=== PATIENT | female | born 1955 | race Caucasian/White ===

== ENCOUNTER 2018-04-05 14:13 | Emergency (ER) | payer BC ==
[2018-04-05 14:44] LABS: Bilirubin Negative (Negative); Blood, Urine Trace (Negative); Clarity Clear (Clear); Glucose, Urine (Dipstick) Negative (Negative); Leukocyte Trace (Negative); Nitrite Positive (Negative); Protein, Urine (Dipstick) Negative (Neg-Trace); Specific Gravity, Urine 1.015 (1.005-1.030); Urobilinogen 0.2 mg/dL (0.2-1.0)
[2018-04-05 14:53] LABS: Bacteria/HPF Rare-Few HPF (None Seen); Other Microscopic Description C&S SET UP; RBC/HPF 0-3 HPF (0-3); Squamous Epithelial 0-3 HPF (0-3); WBC/HPF 0-3 HPF (0-3); Yeast-All Forms 1+ HPF (None Seen)
[2018-04-05] MEDS ORDERED: HYDROcodone/Acetaminophen 5/325 mg Tablet ONE (14:58)
[2018-04-05] MEDS ORDERED: Sulfameth/Trimethoprim DS 800-160mg TAB ONE (14:58)
[2018-04-05] MEDS ORDERED: Fluconazole 100 MG TAB ONE ×2 (15:07→15:08)
== END 2018-04-05 15:34 | disposition home or self-care (01) ==
LOC: MADERS 14:13
DX: N39.0 Urinary tract infection, site not specified (principal); B37.3 Candidiasis of vulva and vagina; J45.909 Unspecified asthma, uncomplicated; I10 Essential (primary) hypertension; Z79.899 Other long term (current) drug therapy
CPT/HCPCS: 81003; 81015; 87086; 99283

== ENCOUNTER 2019-10-15 02:11 | Emergency (ER) | payer BC ==
[2019-10-15] MEDS ORDERED: Ibuprofen 800 MG TAB ONE (02:43)
[2019-10-15] MEDS ORDERED: Ondansetron PF 4 MG/2 ML Vial ONE (02:43)
[2019-10-15] MEDS ORDERED: Sodium Chloride 0.9% 1,000 ML ONE (02:43)
[2019-10-15 03:09] LABS: #Basophils 0.1 thou/uL (0.0-0.2); #Lymphocytes 1.6 thou/uL (1.20-3.40); #Monocytes 1.2 thou/uL (0.11-0.59); #Neutrophils 11.1 thou/uL (1.40-6.50); %Basophils 0.6 % (0.0-1.0); %Lymphocytes 11.4 % (21.0-51.0); %Monocytes 8.3 % (0.0-10.0); %Neutrophils 79.6 % (42.0-75.0); Hemoglobin 11.7 g/dL (12.0-16.0); Mean Corpuscular Hemoglobin 28.7 pg (27.0-31.0); Mean Corpuscular Volume 89.7 fL (78.0-98.0); Mean Platelet Volume 6.8 fL (7.4-10.4); Platelet Count 176 thou/uL (130-400); RBC Distribution Width 12.2 % (11.5-14.5); Red Blood Cell (RBC) Count 4.09 mill/uL (4.20-5.40)
[2019-10-15 03:26] LABS: ALT (SGPT) 17 U/L (8-55); AST (SGOT) 17 U/L (5-34); Alkaline Phosphatase 70 U/L (40-110); Anion Gap 14 mmol/L (10-20); BUN (Urea Nitrogen) 14 mg/dL (9.8-20.1); Bilirubin, Total 0.8 mg/dL (0.2-1.2); CK (CPK) 47 U/L (29-168); Calc. Creatinine Clearance 0 mL/min (70-130); Calcium 9.8 mg/dL (7.8-10.44); Carbon Dioxide 24 mmol/L (23-31); Chloride 105 mmol/L (98-107); Estimated GFR-MDRD 75; Globulin 3.1 g/dL (2.4-3.5); Glucose 109 mg/dL (80-115); Potassium 3.3 mmol/L (3.5-5.1); Protein, Total 7.1 g/dL (6.0-8.3); Sodium 140 mmol/L (136-145)
[2019-10-15] MEDS ORDERED: Phenergan/Codeine 10-6.25mg/5ml UDCUP ONE (04:04)
--- NOTE | 2019-10-15 08:04 | RAD ---
2 view chest: [10/15/2019] Comparison:None available HISTORY: Cough FINDINGS: Heart and mediastinal contours are grossly unremarkable. Mild increased linear interstitial density with pulmonary hyperinflation suggesting air trapping. Incompletely imaged cervical spine hardware present. IMPRESSION: No focal consolidation or alveolar edema. Mild interstitial prominence and pulmonary hype rinflation which could be on the basis of acute interstitial pneumonitis or could be chronic on the basis of COPD. Clinical correlation required.
== END 2019-10-15 04:13 | disposition home or self-care (01) ==
LOC: MADERS 02:11
DX: J10.1 Influenza due to other identified influenza virus with other respiratory manifestations (principal); E86.0 Dehydration; I10 Essential (primary) hypertension; J45.909 Unspecified asthma, uncomplicated; Z79.899 Other long term (current) drug therapy
CPT/HCPCS: 71046; 80053; 82550; 83605; 85025; 87040; 87804; 94640; 96361; 96374; J2405; J7050; J7620